=== PATIENT | female | born 1990 | race Caucasian/White ===

== ENCOUNTER 2019-12-16 16:10 | Emergency (ER) | payer OTHER, SELFPAY ==
[2019-12-16 16:23] VITALS: BP 115/71; PULSE 70; RESP 16; TEMP 36.9; O2SAT 100
--- NOTE | 2019-12-16 16:25 | ED.GENADULT ---
HPI - General Adult General Chief complaint: Ear Stated complaint: knot on back of ear Time Seen by Provider: 12/16/19 16:23 Source: patient and RN notes reviewed Mode of arrival: ambulatory Limitations: no limitations History of Present Illness HPI narrative: 29-year-old female presents with concern for a painful bump behind her right ear. Reports she wears glasses and a mask at work all day long, reports they rub against the area on the ear. She denies any inner ear pain, discharge, difficulty hearing, fever, malaise. Denies any open skin or drainage from the area. complaint: Nodule Related Data Allergies Allergy/AdvReac Type Severity Reaction Status Date / Time latex Allergy Unknown ITCHING Unverified 08/28/18 10:22 NOTED WITH CONDOMS Review of Systems Review of Systems: Narrative: CONSTITUTIONAL: Denies malaise, chills, sweats, or fever. ENT: Denies rhinorrhea, congestion, sinus pain, otalgia or sore throat. CARDIOVASCULAR: Denies chest pain, palpitations, or edema. RESPIRATORY: Denies cough or dyspnea. SKIN: Reports painful red bump behind the right ear MUSCULOSKELETAL: Denies myalgia. NEUROLOGIC: Denies headache. All systems reviewed & are unremarkable except as noted in HPI and below PMFSH Comments At time of signature, agree with nursing past medical, surgical, social and family history. There is no relevant family history pertinent to the presenting complaint Exam Narrative: Exam Narrative: GENERAL: Well-appearing, well-nourished, and in no acute distress. HEAD: Normocephalic, atraumatic. EYES: PERRLA, conjunctivae clear ENT: Nares clear, turbinates pink, no rhinorrhea or epistaxis. Mucous membranes moist. TM pearly kern with sharp light reflex bilaterally; no tragal tenderness. Oropharynx without erythema or lesions. Tonsils not enlarged and without exudate. NECK: Supple. CHEST: No respiratory distress. Speaks in full sentences. HEART: Regular rate and rhythm. SKIN: Warm, dry, no rash. NEURO: Alert and oriented x3. PSYCH: Normal mood and affect HENMT: Head images: 1. Approximately 0.75 cm diameter firm nodule, nonfluctuant, no surrounding erythema edema or induration, no open skin, tender Course Course Emergency Course: Patient is aware of diagnosis, understands and agrees to treatment plan. Anticipatory guidance given. Patient agrees to follow-up as directed and is aware of reasons to seek care at the emergency department. Portions of this record may have been created with voice recognition software Vital Signs Vital signs: Vital Signs Temperature 98.4 F 12/16/19 16:23 Pulse Rate 70 12/16/19 16:23 Respiratory Rate 16 12/16/19 16:23 Blood Pressure 115/71 12/16/19 16:23 Pulse Oximetry 100 12/16/19 16:23 Temperature 98.4 F 12/16/19 16:23 Pulse Rate 70 12/16/19 16:23 Respiratory Rate 16 12/16/19 16:23 Blood Pressure 115/71 12/16/19 16:23 Pulse Oximetry 100 12/16/19 16:23 Reviewed. Medical Decision Making MDM Narrative Medical decision making narrative: Exam findings show no acute concerns or changes; patient is non-toxic appearing and is in no distress. Patient is appropriate for outpatient treatment and follow-up. Differential Diagnosis Differential Diagnosis: Cellulitis, lymphadenopathy, papule, nodule Vital Signs Vital Signs: Vital Signs Temperature 98.4 F 12/16/19 16:23 Pulse Rate 70 12/16/19 16:23 Respiratory Rate 16 12/16/19 16:23 Blood Pressure 115/71 12/16/19 16:23 Pulse Oximetry 100 12/16/19 16:23 Temperature 98.4 F 12/16/19 16:23 Pulse Rate 70 12/16/19 16:23 Respiratory Rate 16 12/16/19 16:23 Blood Pressure 115/71 12/16/19 16:23 Pulse Oximetry 100 12/16/19 16:23 Critical Care Time Critical Care Time Critical Care Time: No Discharge Plan Discharge Clinical Impression: Nodule of external ear Qualifiers: Laterality: right Qualified Code(s): H61.891 - Other specified disorders of rig
== END 2019-12-16 16:32 | disposition home or self-care (01) ==
PROVIDERS: Emergency Provider Nurse Practitioner
DX: H61.891 Other specified disorders of right external ear (principal); K21.9 Gastro-esophageal reflux disease without esophagitis
CPT/HCPCS: 99213; G0463

== ENCOUNTER 2021-03-08 17:03 | Emergency (ER) | payer OTHER, SELFPAY ==
[2021-03-08 17:28] VITALS: BP 99/65; PULSE 90; RESP 18; TEMP 37; O2SAT 99
--- NOTE | 2021-03-08 17:46 | ED.URI ---
HPI - URI/Sore Throat General Chief Complaint: Upper Respiratory Infection Stated Complaint: running fever and cough Time Seen by Provider: 03/08/21 17:40 Source: patient, RN notes reviewed and old records reviewed Mode of arrival: ambulatory Limitations: no limitations History of Present Illness HPI Narrative: 31 year old female who is 38 weeks who reports that she was exposed to COVID on Sunday at her baby shower. She reports that she has been having allergy problems like sinus drainage, cold chills hot flashes and cough since Sunday. Patient states that she has been on bedrest for about a month because she was starting to dilate. Patient continues to smoke cigarettes daily up to 1 pack day, encouraged patient to cut usage back working towards quitting. Patient states that she has felt feverish but has not taken her temperature. no shortness of breath or wheezing.has not had COVID vaccination. MD elicited complaint: fever, cough, rhinorrhea and nasal congestion Pertinent past history: other (tobacco abuse) Onset (ago): day(s) (2-3 days) Related Data Home Medications Medication Instructions Recorded Confirmed Flintstones Gummies 03/08/21 valacyclovir 03/08/21 Allergies Allergy/AdvReac Type Severity Reaction Status Date / Time latex Allergy Unknown ITCHING Unverified 08/28/18 10:22 NOTED WITH CONDOMS Review of Systems Review of Systems: CONSTITUTIONAL: Reports has felt feverish, chills, or sweats. EYES: Denies visual changes, redness, or discharge. ENT: Positive rhinorrhea,sinus congestion,no sore throat, or otalgia. CARDIOVASCULAR: Denies chest pain, palpitations, or edema. RESPIRATORY: Positive cough no dyspnea. GASTROINTESTINAL: Denies abdominal pain, nausea, vomiting, or diarrhea. GENITOURINARY: Denies dysuria or hematuria. SKIN: Denies rash or itching. MUSCULOSKELETAL: Denies back pain, joint pain, or myalgia. NEUROLOGIC: Denies headache, numbness, or weakness. PSYCHIATRIC: Denies anxiety or depression. All systems reviewed & are unremarkable except as noted in HPI and below PMFSH Comments At time of signature, agree with nursing past medical, surgical, social and family history. There is no relevant family history pertinent to the presenting complaint Exam Narrative: GENERAL: Well-appearing, well-nourished, and in no acute distress. HEAD: Normocephalic, atraumatic. EYES: PERRLA and EOMI. ENT: Nares pink, clear rhinorrhea or epistaxis. Mucous membranes moist.TM's normal with throat pink with no lesions or exudates or tonsil enlargement. NECK: Supple.no lymphadenopathy CHEST: Clear to auscultation. No respiratory distress.SAO2 99% on room air HEART: Regular rate and rhythm. No murmur heard. Normal peripheral pulses. ABDOMEN: Soft, nontender, nondistended, normal active bowel sounds. EXTREMITIES: Normal range of motion. No edema. SKIN: Warm, dry, no rash. NEURO: No focal deficits. Alert and oriented x3. Course Vital Signs Vital signs: Vital Signs Temperature 37.0 C 03/08/21 17:28 Pulse Rate 90 03/08/21 17:28 Respiratory Rate 18 03/08/21 17:28 Blood Pressure 99/65 L 03/08/21 17:28 Pulse Oximetry 99 03/08/21 17:28 Temperature 37.0 C 03/08/21 17:28 Pulse Rate 90 03/08/21 17:28 Respiratory Rate 18 03/08/21 17:28 Blood Pressure 99/65 L 03/08/21 17:28 Pulse Oximetry 99 03/08/21 17:28 MDM - URI/Sore Throat Differential Diagnosis Differential diagnosis: Likely upper respiratory infection, viral infection and other (exposure to covid,COVID) Medical Records Attestation: I reviewed the patient's medical records. Lab Data Attestation: I reviewed the patient's lab results. Lab results narrative: Covid antigen negative, PCR Covid pending Critical Care Time Critical Care Time Critical Care Time: No Discharge Plan Discharge Clinical Impression: Encounter for screening for COVID-19 Upper respiratory infection Qualifiers: URI type: unspecified URI Q
--- NOTE | 2021-03-08 17:48 | PC.NURSE ---
doppler heart rate 134 to LLQ of mother's abdomen. Mother reports she has been feeling the baby move at least 8-10 times an hour.
[2021-03-09 22:41] LABS: SARS-CoV-2 RNA PCR Negative
== END 2021-03-08 18:14 | disposition home or self-care (01) ==
PROVIDERS: Emergency Provider Registered Nurse
DX: O99.513 Diseases of the respiratory system complicating pregnancy, third trimester (principal); J06.9 Acute upper respiratory infection, unspecified; Z20.822 Contact with and (suspected) exposure to COVID-19; Z3A.38 38 weeks gestation of pregnancy
CPT/HCPCS: 87426; 99213; C9803; G0463; U0003; U0005

== ENCOUNTER 2022-01-18 18:36 | Emergency (ER) | payer OTHER, SELFPAY ==
--- NOTE | ~2022-01-18 | XR_ITS ---
EXAM: XR elbow LT min 3V DATE: 01/18/2022 18:56 HISTORY: fall injury, left elbow pain . COMPARISON: None available. FINDINGS: Normal mineralization. Nondisplaced fracture of the radial head. No lytic or blastic lesio n. Joint spaces are maintained. No erosion or periosteal change. Elbow joint effusion. Soft tissues w ithin normal limits. IMPRESSION: Nondisplaced left radial head fracture. Reviewed, dictated and finalized at location K.
[2022-01-18 18:41] VITALS: BP 108/66; PULSE 99; RESP 17; TEMP 36.6; O2SAT 100
--- NOTE | 2022-01-18 18:45 | ED.UPPEXIN ---
HPI - Extremity Injury (Upper) General Chief Complaint: Extremity Injury, Upper Stated Complaint: fall, left elbow pain Time Seen by Provider: 01/18/22 18:44 History of Present Illness HPI narrative: 31-year-old female presented to the emergency room complaints of left elbow pain. Patient states about 2 hours prior to arrival she tripped and fell over her daughter's pack and play landing directly on her left elbow. States pain is worse with any type of movement. Related Data Home Medications Medication Instructions Recorded Confirmed Fldavis Gummies 03/08/21 valacyclovir 1 gram tablet 03/08/21 Allergies Allergy/AdvReac Type Severity Reaction Status Date / Time latex Allergy Unknown ITCHING Verified 01/18/22 19:55 NOTED WITH CONDOMS Review of Systems Review of Systems: CONSTITUTIONAL: Denies fever, chills, or sweats. EYES: Denies visual changes, redness, or discharge. ENT: Denies rhinorrhea, congestion, sore throat, or otalgia. CARDIOVASCULAR: Denies chest pain, palpitations, or edema. RESPIRATORY: Denies cough or dyspnea. GASTROINTESTINAL: Denies abdominal pain, nausea, vomiting, or diarrhea. GENITOURINARY: Denies dysuria or hematuria. SKIN: Denies rash or itching. MUSCULOSKELETAL: Reports left elbow pain NEUROLOGIC: Denies headache, numbness, dizziness, or weakness. PSYCHIATRIC: Denies anxiety or depression. Exam Narrative: GENERAL: Well-appearing, well-nourished, no physical limitations, and in no acute distress. HEAD: Normocephalic, atraumatic. EYES: Conjunctivae normal, PERRLA and EOMI. CHEST: Clear to auscultation. No respiratory distress. No wheezes rales or rhonchi. No tenderness. HEART: Regular rate and rhythm. No murmur heard. Normal peripheral pulses. EXTREMITIES: Left elbow: Tenderness over the proximal radius, minimal soft tissue swelling noted, no ecchymosis, no obvious bony abnormality, limited range of motion with all mathew of movement, neurovascular is intact distally SKIN: Warm, dry, no rash. No noted wounds NEURO: No focal deficits. Alert and oriented x3. MAEW. CN's II-XI intact bilaterally, normal gait PSYCH: Cooperative. Normal mood and affect. Course Vital Signs Vital signs: Vital Signs Temperature 36.6 C 01/18/22 18:41 Pulse Rate 99 01/18/22 18:41 Respiratory Rate 17 01/18/22 18:41 Blood Pressure 108/66 01/18/22 18:41 Pulse Oximetry 100 01/18/22 18:41 Oxygen Delivery Room Air 01/18/22 18:41 Temperature 36.6 C 01/18/22 18:41 Pulse Rate 99 01/18/22 18:41 Respiratory Rate 17 01/18/22 18:41 Blood Pressure 108/66 01/18/22 18:41 Pulse Oximetry 100 01/18/22 18:41 Oxygen Delivery Room Air 01/18/22 18:41 Procedures Orthopedic Splinting/Casting Injury #1: Splinting/Casting Date: 01/18/22 Side: left Upper Extremity Injury Location: elbow Splint: customized in ED Pre-Formed: sling Pre-Procedure Neuro Vascular Exam: normal Post-Procedure Neuro Vascular Exam: normal MDM - Extremity Injury (Upper) Imaging Data My impression: proximal radial fracture Discharge Plan Discharge Clinical Impression: Elbow fracture, left Patient Disposition: Home, Self-Care Condition: Stable Instructions: Antibiotic Form, Arm Fracture in Adults (ED), Splint Care (ED) Prescriptions: New hydrocodone-acetaminophen 5-325 mg tablet 1 tablet PO Q8H PRN (Reason: pain) Qty: 20 0RF No Action valacyclovir 1 gram tablet Flintstones Gummies Follow-up/Referrals: PHYSICIAN,FIELD SERVICES MANAGER [Primary Care Provider] - Oneil Obrien MD [Physician] - Time of Disposition: 19:00
[2022-01-18] MEDS: HYDROcodone/acetaminophen (*CRX) 5-325 MG TABLET 1 TAB PO (19:56)
--- NOTE | 2022-01-18 20:07 | PC.NURSE ---
pt. tolerated splint and sling well. good cap refill and able to move fingers.
== END 2022-01-18 20:06 | disposition home or self-care (01) ==
LOC: ANHED 19:40
PROVIDERS: Emergency Provider Nurse Practitioner Family
DX: S42.402A Unspecified fracture of lower end of left humerus, initial encounter for closed fracture (principal); W01.0XXA Fall on same level from slipping, tripping and stumbling without subsequent striking against object, initial encounter
CPT/HCPCS: 29105; 73080; 99284; A4565; A9270

== ENCOUNTER 2022-03-19 02:40 | Emergency (ER) | payer OTHER, SELFPAY ==
--- NOTE | ~2022-03-19 | CT_ITS ---
EXAMINATION: CT abdomen pelvis wo con DATE: 03/19/2022 04:13 INDICATION: Right low back pain TECHNIQUE: Computed tomography (CT) of the abdomen and pelvis was performed without intravenous contr ast. The dose-length product was 722.40 mGy-cm. CT dated 11/20/2008 COMPARISON: CT dated 11/20/2008 FINDINGS: Calcified granuloma right middle lobe. Otherwise, lung bases are unremarkable. Heart size n ormal. No significant pleural or pericardial effusion. The liver, spleen, pancreas, adrenal glands an d kidneys are unremarkable. No hydronephrosis. The liver, spleen, pancreas, adrenal glands and kidney s are unremarkable. Nonobstructive bowel gas pattern. The bladder is decompressed limiting evaluation for bladder wall thickening. No abnormal pelvic masses or fluid collections. No significant vascular abnormality. No lymphadenopathy. No acute osseous abnormality. IMPRESSION: 1. No acute abdominal abnormality. Reviewed, dictated and finalized at location A.
[2022-03-19 02:43] VITALS: BP 139/81; PULSE 85; RESP 18; TEMP 36.4; O2SAT 100
[2022-03-19 03:59] LABS: Appearance Urine Clear (Clear); Bilirubin Urine Negative (Negative); Blood Urine Trace-lysed (Negative); Color Urine Yellow (Yellow); Glucose Urine UA Negative (Negative); Ketones Urine Negative (Negative); Leukocyte Esterase Ur Negative LEU/UL (Negative); Nitrate Urine Negative (Negative); Protein Urine Negative (Negative); Urobilinogen Urine 0.2 mg/dL (<2.0)
--- NOTE | 2022-03-19 04:04 | PC.NURSE ---
Pt to Ct via stretcher at this time.
[2022-03-19 04:05] LABS: Add Urine Microscopic? YES
[2022-03-19] MEDS: SODIUM CHLORIDE 0.9% IV 1,000 ML 999 ML IV CONT (04:15)
[2022-03-19] MEDS: MORPHINE SULFATE (*CRX) 4 MG/ML INJ IV PUSH (04:16)
[2022-03-19] MEDS: ONDANSETRON INJ 4 MG/2 ML VIAL IV PUSH (04:16)
[2022-03-19 04:25] LABS: Basophils Percent Auto 0.4 % (0.2-1.2); Eosinophils Absolute Auto 0.1 K/mm3 (0-0.3); Eosinophils Percent Auto 1.6 % (0-4.4); Hematocrit 43.3 % (37.0-47.0); Hemoglobin 14.2 g/dL (12.0-15.0); Immature Granulocyte Absolute 0.02 K/mm3 (0.00-0.031); Immature Granulocyte Percent A 0.3 % (0-0.5); Lymphocytes Absolute Auto 1.48 K/mm3 (0.9-3.2); Lymphocytes Percent Auto 21.7 % (18.3-44.2); Mean Corpuscular HGB Conc 32.8 g/dl (32-36); Mean Corpuscular Hemoglobin 30.3 pg (26-34); Mean Corpuscular Volume 92.5 fl (80-100); Mean Platelet Volume 9.3 fl (7.4-10.4); Monocytes Absolute Auto 0.5 K/mm3 (0.1-0.6); Monocytes Percent Auto 7.6 % (2.6-8.5); Neutrophils Absolute Auto 4.7 K/mm3 (1.3-6.7); Neutrophils Percent Auto 68.4 % (45.5-73.1); Platelet Count Result 232 k/mm3 (150-375); Red Blood Count 4.68 M/mm3 (4.2-5.4); Red Cell Distribution Width 12.9 % (11.5-14.5); White Blood Count 6.8 K/mm3 (4.5-10.0)
[2022-03-19 04:34] LABS: Lactic Acid Reflex 0.5 mmol/L (0.7-2.0)
[2022-03-19 04:35] LABS: Alanine Aminotransferase 21 U/L (6-35); Albumin Level 4.1 g/dL (3.5-5.1); Alkaline Phosphatase 70 U/L (38-126); Anion Gap 9 mmol/L (8-16); Aspartate Amino Transferase 21 U/L (14-36); Bilirubin,Total 0.1 mg/dL (0.2-1.3); Blood Urea Nitrogen 11 mg/dL (7-17); Calcium 8.5 mg/dL (8.4-10.2); Carbon Dioxide 22 mmol/L (22-30); Chloride 107 mmol/L (98-107); Estimated Glomerular Filt Rate > 60; Glucose 95 mg/dL (65-110); Lipase 73 U/L (23-300); Potassium 3.9 mmol/L (3.4-5.0); Sodium 138 mmol/L (137-145)
--- NOTE | 2022-03-19 04:38 | ED.GENADULT ---
HPI - General Adult General Chief complaint: Back Pain/Injury Stated complaint: Right lower back/hip pain Time Seen by Provider: 03/19/22 03:51 History of Present Illness HPI narrative: Patient 72-year-old female who presents the emergency department with chief complaint of right flank pain. Patient reports that she has pain right around the SI joint area reports it radiates to the right lower quadrant. Patient states is a sharp type pain worse with movement and improved with rest. Patient denies saddle anesthesia denies foot drop Related Data Home Medications Medication Instructions Recorded Confirmed valacyclovir 1 gram tablet 03/08/21 02/20/22 pediatric multivitamin no.209 tablet PO 02/20/22 02/20/22 (Children's Multivitamin Gummy chewable tablet) Allergies Allergy/AdvReac Type Severity Reaction Status Date / Time latex Allergy Unknown ITCHING Verified 03/19/22 04:15 NOTED WITH CONDOMS Review of Systems Review of Systems: A 10 system review of systems was completed on the patient and is negative except for what is stated in the HPI. Nursing and ancillary documentation was reviewed. [facility] Past Medical History Medical History Allergies Anxiety Asthma Endometriosis GERD (gastroesophageal reflux disease) IBS (irritable bowel syndrome) Surgical History Surgical History No history of previous surgery Family History Family History Father Heart disease Mother Heart disease Family history of alcoholism Asthma Hypertension Cerebrovascular accident Family history of thyroid disorder Son No problems noted. Sibling Asthma Hypertension Depression Social History Social History Smoking status: Current every day smoker Tobacco type: cigars Alcohol intake: current Alcohol use details: Whiskey Substance use: current Substance use type: marijuana Gender identity (if verbalized by the patient): Female Exam Narrative: GENERAL: Well-appearing, well-nourished, and in no acute distress. HEAD: Normocephalic, atraumatic. EYES: PERRLA and EOMI. ENT: Nares clear, no rhinorrhea or epistaxis. Mucous membranes moist. NECK: Supple. CHEST: Clear to auscultation. No respiratory distress. HEART: Regular rate and rhythm. No murmur heard. Normal peripheral pulses. ABDOMEN: Soft, nontender, nondistended, normal active bowel sounds. EXTREMITIES: Normal range of motion. No edema. Tenderness of the SI joint SKIN: Warm, dry, no rash. NEURO: No focal deficits. Alert and oriented x3. PSYCH: Normal mood and affect. Course Course Emergency Course: CT scan showed no evidence of kidney stone. Urinalysis showed no evidence of UTI. Vital Signs Vital signs: Vital Signs Temperature 36.4 C 03/19/22 02:43 Pulse Rate 85 03/19/22 02:43 Respiratory Rate 18 03/19/22 02:43 Blood Pressure 139/81 03/19/22 02:43 Pulse Oximetry 100 03/19/22 02:43 Oxygen Delivery Room Air 03/19/22 02:43 Temperature 36.4 C 03/19/22 02:43 Pulse Rate 66 03/19/22 04:47 Respiratory Rate 16 03/19/22 04:47 Blood Pressure 106/75 03/19/22 04:47 Pulse Oximetry 99 03/19/22 04:47 Oxygen Delivery Room Air 03/19/22 02:43 Medical Decision Making Vital Signs Vital Signs: Vital Signs Temperature 36.4 C 03/19/22 02:43 Pulse Rate 85 03/19/22 02:43 Respiratory Rate 18 03/19/22 02:43 Blood Pressure 139/81 03/19/22 02:43 Pulse Oximetry 100 03/19/22 02:43 Oxygen Delivery Room Air 03/19/22 02:43 Temperature 36.4 C 03/19/22 02:43 Pulse Rate 66 03/19/22 04:47 Respiratory Rate 16 03/19/22 04:47 Blood Pressure 106/75 03/19/22 04:47 Pulse Oximetry 99 03/19/22 04:47 Oxygen Delivery Room
[2022-03-19 04:47] VITALS: BP 106/75; PULSE 66; RESP 16; O2SAT 99
== END 2022-03-19 05:07 | disposition home or self-care (01) ==
PROVIDERS: Emergency Provider Emergency Medicine
DX: M54.41 Lumbago with sciatica, right side (principal); J45.909 Unspecified asthma, uncomplicated; N80.9 Endometriosis, unspecified; K21.9 Gastro-esophageal reflux disease without esophagitis; K58.9 Irritable bowel syndrome, unspecified; F17.290 Nicotine dependence, other tobacco product, uncomplicated
CPT/HCPCS: 36415; 74176; 80053; 81001; 81025; 83605; 83690; 85025; 96361; 96374; 96375; 99284; J2270; J2405; J7030

== ENCOUNTER 2022-03-28 09:53 | Emergency (ER) | payer OTHER, SELFPAY ==
[2022-03-28 10:13] VITALS: BP 130/100; PULSE 86; RESP 16; TEMP 36.8; O2SAT 100
[2022-03-28] MEDS: SODIUM CHLORIDE 0.9% IV 1,000 ML 999 ML IV CONT (10:30)
[2022-03-28 10:35] LABS: Basophils Absolute Auto 0.1 K/mm3 (0.0-0.1); Basophils Percent Auto 0.4 % (0.2-1.2); Eosinophils Absolute Auto 0.2 K/mm3 (0-0.3); Eosinophils Percent Auto 1.2 % (0-4.4); Hematocrit 49.8 % (37.0-47.0); Hemoglobin 16.9 g/dL (12.0-15.0); Immature Granulocyte Absolute 0.07 K/mm3 (0.00-0.031); Immature Granulocyte Percent A 0.6 % (0-0.5); Lymphocytes Absolute Auto 2.09 K/mm3 (0.9-3.2); Lymphocytes Percent Auto 17.4 % (18.3-44.2); Mean Corpuscular HGB Conc 33.9 g/dl (32-36); Mean Corpuscular Hemoglobin 30.5 pg (26-34); Mean Corpuscular Volume 89.9 fl (80-100); Mean Platelet Volume 9.2 fl (7.4-10.4); Monocytes Absolute Auto 0.4 K/mm3 (0.1-0.6); Monocytes Percent Auto 3.2 % (2.6-8.5); Neutrophils Absolute Auto 9.3 K/mm3 (1.3-6.7); Neutrophils Percent Auto 77.2 % (45.5-73.1); Platelet Count Result 320 k/mm3 (150-375); Red Blood Count 5.54 M/mm3 (4.2-5.4); Red Cell Distribution Width 12.8 % (11.5-14.5)
--- NOTE | 2022-03-28 10:40 | ED.HA ---
HPI - Headache General Chief Complaint: Headache Stated Complaint: headache Time Seen by Provider: 03/28/22 10:12 History of Present Illness HPI Narrative: Patient is a 32-year-old female here for evaluation of a headache over the past 3 days. She states that the pain is severe and throbbing in nature, located in her posterior head and also around the frontal region. Headache is associated with photophobia , nausea and several episodes of vomiting. She is attempted ibuprofen and Tylenol without significant relief. Patient denies history of migraine headaches. She denies any changes to her vision, neck pain or stiffness, fevers or chills, abdominal pain, chest pain or shortness of breath. No head trauma. She is on Depo-Provera control and notes irregular cycles. Related Data Home Medications Medication Instructions Recorded Confirmed valacyclovir 1 gram tablet 03/08/21 02/20/22 pediatric multivitamin no.209 tablet PO 02/20/22 02/20/22 (Children's Multivitamin Gummy chewable tablet) Allergies Allergy/AdvReac Type Severity Reaction Status Date / Time latex Allergy Unknown ITCHING Verified 03/19/22 04:15 NOTED WITH CONDOMS Review of Systems Review of Systems: Gen: Denies fevers or chills Eyes: Denies eye pain or visual change ENT: Denies congestion Respiratory: Denies shortness of breath or cough CV: Denies chest pain or palpitations GI: Reports nausea and vomiting. Denies abdominal pain or diarrhea : denies burning, urgency, frequency or hematuria Musculoskeletal: Denies back pain or muscle pain Neuro: Reports headache. Denies numbness, tingling, weakness or focal weakness Skin: Denies rash Except as documented, all other systems reviewed and negative [facility] Past Medical History Medical History Allergies Anxiety Asthma Endometriosis GERD (gastroesophageal reflux disease) IBS (irritable bowel syndrome) Surgical History Surgical History No history of previous surgery Family History Family History Father Heart disease Mother Heart disease Family history of alcoholism Asthma Hypertension Cerebrovascular accident Family history of thyroid disorder Son No problems noted. Sibling Asthma Hypertension Depression Social History Social History Smoking status: Current every day smoker Tobacco type: cigars Alcohol intake: current Alcohol use details: Whiskey Substance use: current Substance use type: marijuana Gender identity (if verbalized by the patient): Female Exam Narrative: APPEARANCE: Uncomfortable appearing. Head: Normocephalic and atraumatic. EYES: PERRLA/EOMI, conjunctivae clear NOSE: No nasal drainage EARS: External ear normal in appearance THROAT: Oropharynx is clear. Mucous membranes are moist. NECK: No nuchal rigidity, full range of motion in neck without pain. Supple. No adenopathy, no masses. RESPIRATORY: Airway patent, respirations nonlabored. Clear to auscultation bilaterally, no rales, rhonchi, wheezing. CARDIOVASCULAR: Regular rate and rhythm without murmurs, rubs, or gallops. ABDOMINAL: Normoactive bowel sounds. Soft, nontender, nondistended. No rebound tenderness or guarding. MUSCULOSKELETAL: Extremities are warm and well-perfused. Moves all extremities well. No edema. NEURO: Cranial nerves II through XII intact. No drift of upper or lower extremities. Normal speech. No focal neurologic deficits. SKIN: Skin is warm and dry. No rashes. PSYCHIATRIC: Normal affect/mood. Course Vital Signs Vital signs: Vital Signs Temperature 98.2 F 03/28/22 10:13 Pulse Rate 86 03/28/22 10:13 Respiratory Rate 16 03/28/22 10:13 Blood Pressure 130/100 H 03/28/22 10:13 Pulse Oximetry
[2022-03-28 11:00] LABS: Lipase 47 U/L (23-300)
[2022-03-28 11:13] LABS: SARS-CoV-2 RNA PCR Negative
[2022-03-28 11:18] LABS: Beta HCG Quantitative < 2.39 mIU/ML
[2022-03-28] MEDS: diphenhydrAMINE HCl INJ 50 MG/ML VIAL 25 MG IV PUSH (11:41)
[2022-03-28] MEDS: PROCHLORPERAZINE EDISYLATE 10 MG/2 ML VIAL IV PUSH (11:41)
[2022-03-28] MEDS: KETOROLAC 15 MG/ML VIAL (*BKC) IV PUSH (11:41)
[2022-03-28] MEDS: DEXAMETHASONE SOD PHOS INJ 4 MG/ML VIAL IV PUSH (11:41)
[2022-03-28 12:05] LABS: Alanine Aminotransferase 86 U/L (6-35); Albumin Level 4.9 g/dL (3.5-5.1); Alkaline Phosphatase 69 U/L (38-126); Anion Gap 12 mmol/L (8-16); Aspartate Amino Transferase 26 U/L (14-36); Bilirubin,Total 0.5 mg/dL (0.2-1.3); Blood Urea Nitrogen 10 mg/dL (7-17); Calcium 9.5 mg/dL (8.4-10.2); Carbon Dioxide 23 mmol/L (22-30); Chloride 107 mmol/L (98-107); Estimated CRCL calculation 92 ml/min; Estimated Glomerular Filt Rate > 60; Glucose 100 mg/dL (65-110); Potassium 3.9 mmol/L (3.4-5.0); Sodium 142 mmol/L (137-145)
[2022-03-28 12:36] VITALS: BP 137/88; PULSE 60; RESP 12; O2SAT 99
[2022-03-28 12:54] VITALS: BP 120/77; PULSE 60; RESP 16; O2SAT 100
== END 2022-03-28 12:57 | disposition home or self-care (01) ==
PROVIDERS: Physician Assistant; Emergency Provider Emergency Medicine
DX: G43.909 Migraine, unspecified, not intractable, without status migrainosus (principal); Z20.822 Contact with and (suspected) exposure to COVID-19; J45.909 Unspecified asthma, uncomplicated; N80.9 Endometriosis, unspecified; K21.9 Gastro-esophageal reflux disease without esophagitis; K58.9 Irritable bowel syndrome, unspecified; F17.290 Nicotine dependence, other tobacco product, uncomplicated
CPT/HCPCS: 36415; 80053; 81025; 83690; 84702; 85025; 96361; 96374; 96375; 99284; C9803; J0780; J1100; J1200; J1885; J7030; U0003; U0005

== ENCOUNTER 2023-02-22 08:48 | Emergency (ER) | payer OTHER, SELFPAY ==
[2023-02-22 08:56] VITALS: BP 113/62; PULSE 86; RESP 20; TEMP 37.1; O2SAT 100
--- NOTE | 2023-02-22 09:19 | ED.URI ---
HPI - URI/Sore Throat General Chief Complaint: Upper Respiratory Infection Stated Complaint: Cough/Chest Congestion Source: patient and RN notes reviewed Mode of arrival: ambulatory Limitations: no limitations History of Present Illness HPI Narrative: 33-year-old female with hx asthma presented for complaint of thick post nasal drainage and chest tightness x1 week. Also reports 2 days of intermittent sob, which she describes as difficulty taking in a deep breath. Pt denies cough, n/v/d/f/c. Endorses dtr had bronchitis recently. Patient is 14 weeks gestation. Daily smoker at least 1/2ppd. Does not have an inhaler. Not taking anything for symptoms. MD elicited complaint: cough Related Data Allergies Allergy/AdvReac Type Severity Reaction Status Date / Time latex Allergy Unknown ITCHING Verified 02/22/23 09:07 NOTED WITH CONDOMS Review of Systems Review of Systems: CONSTITUTIONAL: denies malaise, chills, sweats, fever EYES: Denies visual changes, redness, or discharge ENT: Reports rhinorrhea, postnasal drainage. Denies otalgia, sore throat CARDIOVASCULAR: Denies chest pain, palpitations, edema RESPIRATORY: Reports post nasal drainage. Denies dyspnea GASTROINTESTINAL: Denies abdominal pain, nausea, vomiting, diarrhea SKIN: Denies rash or itching MUSCULOSKELETAL: denies myalgia NEUROLOGIC: Denies headache PMFSH Past Medical History Medical History Allergies Anxiety Asthma Endometriosis GERD (gastroesophageal reflux disease) IBS (irritable bowel syndrome) Surgical History Surgical History No history of previous surgery Family History Family History Father Heart disease Mother Heart disease Family history of alcoholism Asthma Hypertension Cerebrovascular accident Family history of thyroid disorder Son No problems noted. Sibling Asthma Hypertension Depression Social History Social History Smoking status: Current every day smoker Tobacco type: cigars Alcohol intake: current Alcohol use details: Whiskey Substance use: current Substance use type: marijuana Living arrangements: with family Gender identity (if verbalized by the patient): Female Exam Narrative: GENERAL: well-appearing, nontoxic no acute distress. HEAD: Normocephalic EYES: PERRLA, conjunctivae clear ENT: Mucous membranes moist. TM pearly kern with dull light reflex bilaterally; no tragal tenderness. Oropharynx normal without erythema, lesions or exudate NECK: Supple. No lymphadenopathy CHEST: Clear to auscultation, breath sounds equal. No wheezing, rhonchi, rales, or stridor. No respiratory distress, speaks in full sentences. HEART: Regular rate and rhythm. No murmur heard. SKIN: Warm, dry, no rash. NEURO: Alert and oriented x3. PSYCH: Normal mood and affect Course Course Emergency Course: Patient is aware of diagnosis, understands and agrees to treatment plan. Anticipatory guidance given. Patient agrees to follow-up as directed and is aware of reasons to seek care at the emergency department. Portions of this record may have been created with voice recognition software Level of Care: Express Care Visit Vital Signs Vital signs: Vital Signs Temperature 98.8 F 02/22/23 08:56 Pulse Rate 86 02/22/23 08:56 Respiratory Rate 20 02/22/23 08:56 Blood Pressure 113/62 02/22/23 08:56 Pulse Oximetry 100 02/22/23 08:56 Oxygen Delivery Room Air 02/22/23 08:56 Temperature 98.8 F 02/22/23 08:56 Pulse Rate 86 02/22/23 08:56 Respiratory Rate 20 02/22/23 08:56 Blood Pressure 113/62 02/22/23 08:56 Pulse Oximetry 100 02/22/23 08:56 Oxygen Delivery Room Air 02/22/23 08:56 reviewed MDM - URI/Sore Throat MDM Narrat
== END 2023-02-22 09:36 | disposition home or self-care (01) ==
PROVIDERS: Emergency Provider Nurse Practitioner Family
DX: J06.9 Acute upper respiratory infection, unspecified (principal); F17.290 Nicotine dependence, other tobacco product, uncomplicated; J45.909 Unspecified asthma, uncomplicated; N80.9 Endometriosis, unspecified; K21.9 Gastro-esophageal reflux disease without esophagitis
CPT/HCPCS: 99213; G0463